=== PATIENT | female | born 1975 | race Caucasian/White ===

== ENCOUNTER 2016-10-01 06:09 | Emergency (ER) | payer OTHER ==
[~2016-10-01] VITALS: Ht 180.3 cm; Wt 99.6 kg
[~2016-10-01 06:09] MED LIST: NORTRIPTYLINE H10 MG PO; OMEPRAZOLE40 M1 PO; ROBITUSSIN AC,T10 ML PO; SUMATRIPTAN SU100 MG PO; TAMIFLU75 MG PO; TOPAMAX100 MG PO; TOPIRAMATE25 MG PO; VENTOLIN HFA18 GM IH; ZITHROMAX250 MG PO; ZOFRAN4 MG PO
[2016-10-01 07:12] LABS: BASOPHIL COUNT 0.1 K/uL (0-0.1); EOSINOPHIL (%) 1.2 % (0-5); EOSINOPHIL COUNT 0.1 K/uL (0-0.3); HEMATOCRIT 49.6 % (36.0-46.0); IMMATURE GRANULOCYTE (%) 0.2 % (0.0-0.7); INSTRUMENT ABS NEUTROPHIL CT 6.4 K/uL; LYMPHOCYTE COUNT 1.4 K/uL (1.0-2.8); MCH 29.1 PG (29.0-34.0); MCHC 32.9 G/DL (30.0-36.0); MCV 88.6 FL (83-99); MEAN PLAT.VOLUME 9.7 uM^3 (9.5-12.4); MONOCYTE (%) 6.3 % (3-12); MONOCYTE COUNT 0.5 K/uL (0-0.8); NEUTROPHIL COUNT 6.4 K/uL (1.8-6.4); PLATELET COUNT 275 K/uL (156-360); RBC DIS.WIDTH-SD 39.7 % (39-53); WHITE BLOOD COUNT 8.6 K/uL (4.1-10.2)
[2016-10-01 07:30] LABS: ALKALINE PHOSPHATASE 90 IU/L (3-129); ANION GAP 9 MEQ/L (2-14); CHLORIDE 102 MEQ/L (99-109); GFR ESTIMATE (CALCULATED) > 59 mL/min/; GLUCOSE 102 mg/dL (70-99); POTASSIUM 3.5 MEQ/L (3.7-5.4); SAMPLE HEMOLYSIS CHECK 0; SAMPLE ICTERIC CHECK 0; SAMPLE LIPEMIA CHECK 0; SODIUM 138 MEQ/L (136-147); TOTAL BILIRUBIN 0.3 MG/DL (0.0-1.0); UREA NITROGEN (BUN) 12 mg/dL (9-23)
[2016-10-01 09:14] LABS: C DIFF TOXIN NEGATIVE (NEGATIVE)
[2016-10-01 09:16] LABS: PROBE CHECK PASS; SPECIMEN PROCESSING CONTROL PASS
[2016-10-01 09:36] LABS: INFLUENZA A VIRAL ANTIGEN NEGATIVE; INFLUENZA B VIRAL ANTIGEN NEGATIVE
[2016-10-01] MEDS ORDERED: ZOFRAN ODT4 MG PO ×2 (10:28→10:39)
[2016-10-01] MEDS ORDERED: BENTYL20 MG PO ×2 (10:28→10:39)
[2016-10-01] MEDS ORDERED: LOMOTIL TABLET1 EACH PO ×2 (10:28→10:39)
[2016-10-01 10:45] VITALS: BP 118/90
== END 2016-10-01 11:02 | disposition home or self-care (01) ==
LOC: EME 06:09
PROVIDERS: Emergency Medicine
DX: K52.9 Noninfective gastroenteritis and colitis, unspecified (principal); G43.909 Migraine, unspecified, not intractable, without status migrainosus; E86.0 Dehydration; K21.9 Gastro-esophageal reflux disease without esophagitis; Z85.828 Personal history of other malignant neoplasm of skin; Z87.891 Personal history of nicotine dependence
CPT/HCPCS: 80053; 85025; 87493; 87502; 87506; 99281; 99285; J1885; J2765; J7030

== ENCOUNTER → 2017-02-18 | Outpatient (CLI) | payer OTHER ==
[~2017-02-18] MED LIST changes: +BENTYL20 MG PO; +LOMOTIL TABLET1 EACH PO; +ZOFRAN ODT4 MG PO
== END | disposition home or self-care (01) ==
LOC: RAD 15:16
DX: M77.31 Calcaneal spur, right foot (principal)
CPT/HCPCS: 73600